=== PATIENT | male | born 1970 ===

== ENCOUNTER 2023-01-10 11:06 | Inpatient (IN) | payer OTHER ==
[~2023-01-10] VITALS: Ht 170.2 cm; Wt 70.8 kg
[2023-01-10 12:55] LABS: BASOPHILS % (AUTO) 0.5 % (0.0-2.0); EOSINOPHILS % (AUTO) 0.5 % (1.0-6.0); HEMATOCRIT 45.5 % (41-53); HEMOGLOBIN 14.8 g/dL (13.5-17.5); LYMPHOCYTES % (AUTO) 31.1 % (22.0-44.0); MEAN CORPUSCULAR HEMOGLOBIN 27.9 pg (26.0-34.0); MEAN CORPUSCULAR HGB CONC 32.6 G/dL (31.0-37.0); MEAN CORPUSCULAR VOLUME 86 fL (80-100); MONOCYTES # (AUTO) 0.4 K/uL (0.1-1.0); MONOCYTES % (AUTO) 6.2 % (2.0-9.0); NEUTROPHILS # (AUTO) 3.9 K/uL (1.8-7.7); NEUTROPHILS % (AUTO) 61.7 % (40.0-70.0); PLATELET COUNT (AUTO) 145 K/uL (150-450); RED BLOOD CELL COUNT(AUTO) 5.32 MIL/uL (4.50-5.90); RED CELL DISTRIBUTION WIDTH 13.1 % (11.5-14.5)
[2023-01-10 12:56] LABS: ANION GAP 8 mmol/L (8-16); CALCIUM, TOTAL 9.2 mg/dL (8.8-10.5); CARBON DIOXIDE 27 mmol/L (22-29); CHLORIDE 105 mmol/L (98-107); CREATININE 0.72 mg/dL (0.60-1.30); GLOMERULAR FILTR. RATE CALC > 60 mL/min (>60); GLUCOSE,RANDOM 100 mg/dL (70-110); POTASSIUM 4.3 mmol/L (3.5-5.1); SODIUM SERUM 140 mmol/L (136-145)
[2023-01-10 13:02] LABS: ALANINE AMINOTRANSFERASE 34 U/L (12-78); ALBUMIN 4.3 g/dL (3.4-5.0); ALKALINE PHOSPHATASE 86 U/L (46-116); ASPARTATE AMINOTRANSFERASE 13 U/L (15-37); BILIRUBIN,TOTAL 0.5 mg/dL (0.1-1.0); TOTAL PROTEIN, SERUM 7.9 g/dL (6.4-8.2)
[2023-01-10] MEDS ORDERED: ACETAMINOPHEN 325 MG TABLET PO PRN (13:30)
[2023-01-10] MEDS ORDERED: ONDANSETRON HCL 4 MG/2 ML VIAL IVP PRN (13:30)
[2023-01-10] MEDS ORDERED: BISACODYL 10 MG RECTAL RECTAL SUPPOSITORY PR PRN (13:30)
[2023-01-10] MEDS ORDERED: DOCUSATE SODIUM 100 MG CAPSULE PO PRN (13:30)
[2023-01-10] MEDS ORDERED: IPRATROPIUM BROMIDE 0.5 MG/2.5 ML NEB SOLUTION NEB PRN (13:30)
[2023-01-10] MEDS ORDERED: ALBUTEROL SULFATE 2.5 MG/0.5 ML NEB SOLUTION NEB PRN (13:30)
[2023-01-10] MEDS: GABAPENTIN 300 MG CAPSULE PO SCH ×2 (15:31→23:04)
[2023-01-10] MEDS ORDERED: LORazepam 2 MG/ML VIAL IVP ONE (16:45)
[2023-01-10] MEDS: FERROUS SULFATE 325 MG EC TABLET PO SCH (17:43)
[2023-01-10] MEDS: RANOLAZINE 500 MG ER TABLET PO SCH (23:03)
[2023-01-10] MEDS: DOCUSATE SODIUM 100 MG CAPSULE PO SCH (23:04)
[2023-01-10 23:17] VITALS: BP 120/70
[2023-01-11 04:33] VITALS: BP 117/78
[2023-01-11 07:25] LABS: EOSINOPHILS % (AUTO) 1.4 % (1.0-6.0); HEMATOCRIT 41.5 % (41-53); HEMOGLOBIN 13.9 g/dL (13.5-17.5); LYMPHOCYTES # (AUTO) 2.2 K/uL (1.0-4.8); LYMPHOCYTES % (AUTO) 38.9 % (22.0-44.0); MEAN CORPUSCULAR HEMOGLOBIN 28.6 pg (26.0-34.0); MEAN CORPUSCULAR HGB CONC 33.6 G/dL (31.0-37.0); MEAN CORPUSCULAR VOLUME 85 fL (80-100); MONOCYTES # (AUTO) 0.4 K/uL (0.1-1.0); MONOCYTES % (AUTO) 7.7 % (2.0-9.0); NEUTROPHILS # (AUTO) 2.9 K/uL (1.8-7.7); PLATELET COUNT (AUTO) 133 K/uL (150-450); RED BLOOD CELL COUNT(AUTO) 4.87 MIL/uL (4.50-5.90); RED CELL DISTRIBUTION WIDTH 13.5 % (11.5-14.5)
[2023-01-11 07:51] LABS: ALANINE AMINOTRANSFERASE 29 U/L (12-78); ALBUMIN 3.5 g/dL (3.4-5.0); ALKALINE PHOSPHATASE 75 U/L (46-116); ANION GAP 9 mmol/L (8-16); ASPARTATE AMINOTRANSFERASE 12 U/L (15-37); BILIRUBIN,TOTAL 0.6 mg/dL (0.1-1.0); CALCIUM, TOTAL 8.9 mg/dL (8.8-10.5); CARBON DIOXIDE 24 mmol/L (22-29); CHLORIDE 105 mmol/L (98-107); CREATININE 0.69 mg/dL (0.60-1.30); FREE T4 (FREE THYROXINE) 1.05 ng/dL (0.76-1.46); GLOMERULAR FILTR. RATE CALC > 60 mL/min (>60); GLUCOSE,RANDOM 100 mg/dL (70-110); POTASSIUM 3.7 mmol/L (3.5-5.1); SODIUM SERUM 138 mmol/L (136-145); TOTAL PROTEIN, SERUM 6.8 g/dL (6.4-8.2)
[2023-01-11] MEDS: ASPIRIN 81 MG CHEWABLE TABLET PO SCH (07:56)
[2023-01-11] MEDS: LISINOPRIL 5 MG TABLET PO SCH (07:57)
[2023-01-11] MEDS: DOCUSATE SODIUM 100 MG CAPSULE PO SCH ×2 (07:57→21:05)
[2023-01-11] MEDS: ATORVASTATIN CALCIUM 40 MG TABLET PO SCH (07:57)
[2023-01-11] MEDS: RANOLAZINE 500 MG ER TABLET PO SCH ×2 (07:57→21:05)
[2023-01-11] MEDS: GABAPENTIN 300 MG CAPSULE PO SCH ×3 (07:57→21:05)
[2023-01-11] MEDS: ISOSORBIDE MONONITRATE 30 MG ER TABLET PO SCH (07:57)
[2023-01-11] MEDS: FERROUS SULFATE 325 MG EC TABLET PO SCH ×3 (07:57→17:55)
[2023-01-11] MEDS: CLOPIDOGREL BISULFATE 75 MG TABLET PO SCH (07:57)
[2023-01-11] MEDS: METOPROLOL SUCCINATE 25 MG ER TABLET PO SCH (08:00)
[2023-01-11 08:06] VITALS: BP 122/66
[2023-01-11 08:08] LABS: APPEARANCE,URINE HAZY (CLEAR); BILIRUBIN,URINE NEGATIVE (NEGATIVE); GLUCOSE, URINE (UA) NEGATIVE (NEGATIVE); KETONES,URINE NEGATIVE (NEGATIVE); LEUKOCYTE ESTERASE ,URINE NEGATIVE (NEGATIVE); NITRATE,URINE NEGATIVE (NEGATIVE); OCCULT BLOOD,URINE NEGATIVE (NEGATIVE); PROTEIN,URINE 30-70 mg/dL (NEGATIVE); SPECIFIC GRAVITIY, URINE 1.036 (1.003-1.030); UROBILINOGEN,URINE <=1.0 mg/dL (<=1.0)
[2023-01-11 08:15] LABS: AMPHET/METH SCREEN,URINE NEGATIVE (NEGATIVE); BARBITURATE SCREEN, URINE NEGATIVE (NEGATIVE); BENZODIAZEPINES SCREEN,URINE NEGATIVE (NEGATIVE); CANNABINOID SCREEN,URINE NEGATIVE (NEGATIVE); COCAINE SCREEN,URINE NEGATIVE (NEGATIVE); METHADONE SCREEN, URINE NEGATIVE (NEGATIVE); OPIATE SCREEN,URINE NEGATIVE (NEGATIVE); PHENCYCLIDINE SCREEN,URINE NEGATIVE (NEGATIVE)
[2023-01-11 08:39] LABS: BACTERIA,URINE None Seen /HPF (None Seen); RBC,URINE 0-2 /HPF (0-2); WBC,URINE None Seen /HPF (0-5)
[2023-01-11 08:40] LABS: URIC ACID CRYSTALS,URINE Moderate /LPF (None Seen)
[2023-01-11] MEDS: NITROGLYCERIN 0.4 MG SUBLINGUAL TABLET #25 SL PRN (14:35)
[2023-01-11 16:59] VITALS: BP 126/104
[2023-01-11] MEDS ORDERED: ASPI-1450 PO (17:45)
[2023-01-11] MEDS ORDERED: CLOP75TA60 PO (17:46)
[2023-01-11] MEDS ORDERED: FERR325T27 PO (17:46)
[2023-01-11] MEDS ORDERED: DOCU-385 PO (17:46)
[2023-01-11] MEDS ORDERED: ATOR40TA28 PO (17:46)
[2023-01-11] MEDS ORDERED: GABA-1181 PO (17:47)
[2023-01-11] MEDS ORDERED: ISOS30TA92 PO (17:47)
[2023-01-11] MEDS ORDERED: LISI-892 PO (17:47)
[2023-01-11] MEDS ORDERED: RANO500T27 PO (17:48)
[2023-01-11] MEDS ORDERED: ACET-2247 PO (17:48)
[2023-01-11] MEDS ORDERED: METO25XL PO (17:48)
[2023-01-11] MEDS ORDERED: BISA10SU11 PR (17:49)
[2023-01-11] MEDS ORDERED: AUD NEB (17:49)
[2023-01-11] MEDS ORDERED: IPRNEB IH ×2 (17:50)
[2023-01-11] MEDS ORDERED: NITR0.4T52 SL (17:51)
[2023-01-11] MEDS ORDERED: ONDA-104 IVP (17:52)
[2023-01-11 19:55] VITALS: BP 102/58
[2023-01-12 04:25] VITALS: BP 90/60
[2023-01-12] MEDS: FERROUS SULFATE 325 MG EC TABLET PO SCH ×3 (08:28→16:06)
[2023-01-12] MEDS: LISINOPRIL 5 MG TABLET PO SCH (08:28)
[2023-01-12] MEDS: GABAPENTIN 300 MG CAPSULE PO SCH ×3 (08:28→20:38)
[2023-01-12] MEDS: DOCUSATE SODIUM 100 MG CAPSULE PO SCH ×2 (08:28→20:37)
[2023-01-12] MEDS: CLOPIDOGREL BISULFATE 75 MG TABLET PO SCH (08:28)
[2023-01-12] MEDS: ATORVASTATIN CALCIUM 40 MG TABLET PO SCH (08:29)
[2023-01-12] MEDS: METOPROLOL SUCCINATE 25 MG ER TABLET PO SCH (08:29)
[2023-01-12] MEDS: RANOLAZINE 500 MG ER TABLET PO SCH ×2 (08:29→20:38)
[2023-01-12] MEDS: ISOSORBIDE MONONITRATE 30 MG ER TABLET PO SCH (08:29)
[2023-01-12] MEDS: ASPIRIN 81 MG CHEWABLE TABLET PO SCH (08:29)
[2023-01-12 08:32] VITALS: BP 114/79
[2023-01-12] MEDS: NITROGLYCERIN 0.4 MG SUBLINGUAL TABLET #25 SL PRN (09:33)
[2023-01-12 16:32] VITALS: BP 115/70
[2023-01-12] MEDS ORDERED: DIAZEPAM 5 MG TABLET PO ONE (18:15)
[2023-01-12 19:43] VITALS: BP 111/75
[2023-01-12] MEDS: ClonazePAM 1 MG TABLET PO SCH (20:37)
[2023-01-13 04:40] VITALS: BP 129/89
[2023-01-13 07:45] VITALS: BP 140/67
[2023-01-13] MEDS: ISOSORBIDE MONONITRATE 30 MG ER TABLET PO SCH (08:51)
[2023-01-13] MEDS: LISINOPRIL 5 MG TABLET PO SCH (08:51)
[2023-01-13] MEDS: ASPIRIN 81 MG CHEWABLE TABLET PO SCH (08:51)
[2023-01-13] MEDS: METOPROLOL SUCCINATE 25 MG ER TABLET PO SCH (08:51)
[2023-01-13] MEDS: CLOPIDOGREL BISULFATE 75 MG TABLET PO SCH (08:51)
[2023-01-13] MEDS: RANOLAZINE 500 MG ER TABLET PO SCH ×2 (08:51→20:50)
[2023-01-13] MEDS: ClonazePAM 1 MG TABLET PO SCH ×2 (08:51→20:50)
[2023-01-13] MEDS: FERROUS SULFATE 325 MG EC TABLET PO SCH ×3 (08:51→18:27)
[2023-01-13] MEDS: DOCUSATE SODIUM 100 MG CAPSULE PO SCH ×2 (08:51→20:50)
[2023-01-13] MEDS: GABAPENTIN 300 MG CAPSULE PO SCH ×3 (08:51→20:50)
[2023-01-13] MEDS: ATORVASTATIN CALCIUM 40 MG TABLET PO SCH (08:52)
[2023-01-13 15:52] VITALS: BP 123/60
[2023-01-13 19:39] VITALS: BP 103/59
[2023-01-14 05:07] VITALS: BP 118/75
[2023-01-14 07:40] VITALS: BP 114/63
[2023-01-14] MEDS: RANOLAZINE 500 MG ER TABLET PO SCH ×2 (08:54→20:29)
[2023-01-14] MEDS: ATORVASTATIN CALCIUM 40 MG TABLET PO SCH (08:54)
[2023-01-14] MEDS: FERROUS SULFATE 325 MG EC TABLET PO SCH ×3 (08:54→18:04)
[2023-01-14] MEDS: DOCUSATE SODIUM 100 MG CAPSULE PO SCH ×2 (08:54→20:29)
[2023-01-14] MEDS: GABAPENTIN 300 MG CAPSULE PO SCH ×3 (08:54→20:29)
[2023-01-14] MEDS: LISINOPRIL 5 MG TABLET PO SCH (08:54)
[2023-01-14] MEDS: ISOSORBIDE MONONITRATE 30 MG ER TABLET PO SCH (08:55)
[2023-01-14] MEDS: CLOPIDOGREL BISULFATE 75 MG TABLET PO SCH (08:55)
[2023-01-14] MEDS: METOPROLOL SUCCINATE 25 MG ER TABLET PO SCH (08:55)
[2023-01-14] MEDS: ASPIRIN 81 MG CHEWABLE TABLET PO SCH (08:55)
[2023-01-14] MEDS: ClonazePAM 1 MG TABLET PO SCH ×2 (08:55→20:29)
[2023-01-14 20:15] VITALS: BP 118/50
[2023-01-15 04:33] VITALS: BP 102/67
[2023-01-15 07:42] VITALS: BP 106/62
[2023-01-15] MEDS: DOCUSATE SODIUM 100 MG CAPSULE PO SCH ×2 (08:46→21:00)
[2023-01-15] MEDS: GABAPENTIN 300 MG CAPSULE PO SCH ×3 (08:46→21:08)
[2023-01-15] MEDS: CLOPIDOGREL BISULFATE 75 MG TABLET PO SCH (08:46)
[2023-01-15] MEDS: ATORVASTATIN CALCIUM 40 MG TABLET PO SCH (08:47)
[2023-01-15] MEDS: RANOLAZINE 500 MG ER TABLET PO SCH ×2 (08:47→21:08)
[2023-01-15] MEDS: ISOSORBIDE MONONITRATE 30 MG ER TABLET PO SCH (08:47)
[2023-01-15] MEDS: FERROUS SULFATE 325 MG EC TABLET PO SCH ×3 (08:47→17:44)
[2023-01-15] MEDS: LISINOPRIL 5 MG TABLET PO SCH (08:47)
[2023-01-15] MEDS: METOPROLOL SUCCINATE 25 MG ER TABLET PO SCH (08:47)
[2023-01-15] MEDS: ASPIRIN 81 MG CHEWABLE TABLET PO SCH (08:47)
[2023-01-15] MEDS: ClonazePAM 1 MG TABLET PO SCH ×2 (08:47→21:09)
[2023-01-15 19:17] VITALS: BP 118/77
[2023-01-16 04:28] VITALS: BP 114/68
[2023-01-16 07:37] VITALS: BP 102/69
[2023-01-16] MEDS: ASPIRIN 81 MG CHEWABLE TABLET PO SCH (08:43)
[2023-01-16] MEDS: CLOPIDOGREL BISULFATE 75 MG TABLET PO SCH (08:43)
[2023-01-16] MEDS: ATORVASTATIN CALCIUM 40 MG TABLET PO SCH (08:43)
[2023-01-16] MEDS: RANOLAZINE 500 MG ER TABLET PO SCH ×2 (08:46→21:10)
[2023-01-16] MEDS: FERROUS SULFATE 325 MG EC TABLET PO SCH ×3 (08:46→18:11)
[2023-01-16] MEDS: ISOSORBIDE MONONITRATE 30 MG ER TABLET PO SCH (08:46)
[2023-01-16] MEDS: DOCUSATE SODIUM 100 MG CAPSULE PO SCH ×2 (08:46→21:10)
[2023-01-16] MEDS: GABAPENTIN 300 MG CAPSULE PO SCH ×3 (08:46→21:10)
[2023-01-16] MEDS: ClonazePAM 1 MG TABLET PO SCH ×2 (08:46→21:10)
[2023-01-16] MEDS: LISINOPRIL 5 MG TABLET PO SCH (08:46)
[2023-01-16] MEDS: METOPROLOL SUCCINATE 25 MG ER TABLET PO SCH (08:46)
[2023-01-16 15:31] VITALS: BP 101/72
[2023-01-16 19:37] VITALS: BP 100/70
[2023-01-17 05:07] VITALS: BP 112/86
[2023-01-17 08:03] VITALS: BP 122/56
[2023-01-17] MEDS: ClonazePAM 1 MG TABLET PO SCH ×2 (08:03→20:33)
[2023-01-17] MEDS: DOCUSATE SODIUM 100 MG CAPSULE PO SCH ×2 (08:03→20:33)
[2023-01-17] MEDS: GABAPENTIN 300 MG CAPSULE PO SCH ×3 (08:03→20:34)
[2023-01-17] MEDS: CLOPIDOGREL BISULFATE 75 MG TABLET PO SCH (08:03)
[2023-01-17] MEDS: ISOSORBIDE MONONITRATE 30 MG ER TABLET PO SCH (08:03)
[2023-01-17] MEDS: RANOLAZINE 500 MG ER TABLET PO SCH ×2 (08:03→20:33)
[2023-01-17] MEDS: FERROUS SULFATE 325 MG EC TABLET PO SCH ×3 (08:03→17:37)
[2023-01-17] MEDS: METOPROLOL SUCCINATE 25 MG ER TABLET PO SCH (08:03)
[2023-01-17] MEDS: ATORVASTATIN CALCIUM 40 MG TABLET PO SCH (08:03)
[2023-01-17] MEDS: ASPIRIN 81 MG CHEWABLE TABLET PO SCH (08:04)
[2023-01-17] MEDS: LISINOPRIL 5 MG TABLET PO SCH (08:04)
[2023-01-17 15:02] VITALS: BP 112/90
[2023-01-17 20:27] VITALS: BP 114/74
[2023-01-18 05:23] VITALS: BP 118/70
[2023-01-18 08:18] VITALS: BP 126/79
[2023-01-18] MEDS: RANOLAZINE 500 MG ER TABLET PO SCH ×2 (08:23→20:16)
[2023-01-18] MEDS: CLOPIDOGREL BISULFATE 75 MG TABLET PO SCH (08:24)
[2023-01-18] MEDS: ISOSORBIDE MONONITRATE 30 MG ER TABLET PO SCH (08:24)
[2023-01-18] MEDS: ATORVASTATIN CALCIUM 40 MG TABLET PO SCH (08:24)
[2023-01-18] MEDS: METOPROLOL SUCCINATE 25 MG ER TABLET PO SCH (08:25)
[2023-01-18] MEDS: FERROUS SULFATE 325 MG EC TABLET PO SCH ×3 (08:25→18:12)
[2023-01-18] MEDS: DOCUSATE SODIUM 100 MG CAPSULE PO SCH ×2 (08:26→20:18)
[2023-01-18] MEDS: GABAPENTIN 300 MG CAPSULE PO SCH ×3 (08:26→20:16)
[2023-01-18] MEDS: LISINOPRIL 5 MG TABLET PO SCH (08:27)
[2023-01-18] MEDS: ClonazePAM 1 MG TABLET PO SCH ×2 (08:27→20:16)
[2023-01-18] MEDS: ASPIRIN 81 MG CHEWABLE TABLET PO SCH (08:28)
[2023-01-18 15:13] VITALS: BP 126/68
[2023-01-18 19:55] VITALS: BP 123/65
[2023-01-19 04:40] VITALS: BP 105/72
[2023-01-19 08:00] VITALS: BP 127/69
[2023-01-19] MEDS: ATORVASTATIN CALCIUM 40 MG TABLET PO SCH (08:28)
[2023-01-19] MEDS: RANOLAZINE 500 MG ER TABLET PO SCH ×2 (08:29→20:31)
[2023-01-19] MEDS: ASPIRIN 81 MG CHEWABLE TABLET PO SCH (08:30)
[2023-01-19] MEDS: GABAPENTIN 300 MG CAPSULE PO SCH ×3 (08:30→20:30)
[2023-01-19] MEDS: ISOSORBIDE MONONITRATE 30 MG ER TABLET PO SCH (08:31)
[2023-01-19] MEDS: LISINOPRIL 5 MG TABLET PO SCH (08:31)
[2023-01-19] MEDS: METOPROLOL SUCCINATE 25 MG ER TABLET PO SCH (08:31)
[2023-01-19] MEDS: ClonazePAM 1 MG TABLET PO SCH ×2 (08:32→20:28)
[2023-01-19] MEDS: FERROUS SULFATE 325 MG EC TABLET PO SCH ×3 (08:33→18:13)
[2023-01-19] MEDS: CLOPIDOGREL BISULFATE 75 MG TABLET PO SCH (08:33)
[2023-01-19] MEDS: DOCUSATE SODIUM 100 MG CAPSULE PO SCH ×2 (08:34→20:34)
[2023-01-19 15:36] VITALS: BP 114/66
[2023-01-19 20:42] VITALS: BP 122/66
[2023-01-20 06:15] VITALS: BP 118/64
[2023-01-20 08:07] VITALS: BP 104/64
[2023-01-20] MEDS: METOPROLOL SUCCINATE 25 MG ER TABLET PO SCH (09:12)
[2023-01-20] MEDS: FERROUS SULFATE 325 MG EC TABLET PO SCH ×3 (09:12→17:36)
[2023-01-20] MEDS: ISOSORBIDE MONONITRATE 30 MG ER TABLET PO SCH (09:12)
[2023-01-20] MEDS: DOCUSATE SODIUM 100 MG CAPSULE PO SCH ×3 (09:12→20:06)
[2023-01-20] MEDS: ASPIRIN 81 MG CHEWABLE TABLET PO SCH (09:12)
[2023-01-20] MEDS: GABAPENTIN 300 MG CAPSULE PO SCH ×3 (09:13→20:02)
[2023-01-20] MEDS: ClonazePAM 1 MG TABLET PO SCH ×2 (09:13→20:02)
[2023-01-20] MEDS: ATORVASTATIN CALCIUM 40 MG TABLET PO SCH (09:13)
[2023-01-20] MEDS: LISINOPRIL 5 MG TABLET PO SCH (09:13)
[2023-01-20] MEDS: RANOLAZINE 500 MG ER TABLET PO SCH ×2 (09:13→20:01)
[2023-01-20] MEDS: CLOPIDOGREL BISULFATE 75 MG TABLET PO SCH (09:15)
[2023-01-20] MEDS: ESCITALOPRAM OXALATE 10 MG TABLET PO SCH (15:34)
[2023-01-20] MEDS: OLANZapine 5 MG TABLET PO SCH (20:02)
[2023-01-20 20:42] VITALS: BP 135/83
[2023-01-21 05:49] VITALS: BP 125/72
[2023-01-21 08:17] VITALS: BP 124/57
[2023-01-21] MEDS: CLOPIDOGREL BISULFATE 75 MG TABLET PO SCH (08:28)
[2023-01-21] MEDS: ATORVASTATIN CALCIUM 40 MG TABLET PO SCH (08:28)
[2023-01-21] MEDS: DOCUSATE SODIUM 100 MG CAPSULE PO SCH ×2 (08:28→20:29)
[2023-01-21] MEDS: ISOSORBIDE MONONITRATE 30 MG ER TABLET PO SCH (08:28)
[2023-01-21] MEDS: GABAPENTIN 300 MG CAPSULE PO SCH ×3 (08:28→20:30)
[2023-01-21] MEDS: FERROUS SULFATE 325 MG EC TABLET PO SCH (08:28)
[2023-01-21] MEDS: ASPIRIN 81 MG CHEWABLE TABLET PO SCH (08:29)
[2023-01-21] MEDS: METOPROLOL SUCCINATE 25 MG ER TABLET PO SCH (08:29)
[2023-01-21] MEDS: RANOLAZINE 500 MG ER TABLET PO SCH ×2 (08:29→20:43)
[2023-01-21] MEDS: LISINOPRIL 5 MG TABLET PO SCH (08:29)
[2023-01-21] MEDS: ClonazePAM 1 MG TABLET PO SCH ×2 (08:29→20:30)
[2023-01-21] MEDS: ESCITALOPRAM OXALATE 10 MG TABLET PO SCH (08:37)
[2023-01-21] MEDS: OLANZapine 5 MG TABLET PO SCH (20:30)
[2023-01-22 05:15] VITALS: BP 109/72
[2023-01-22] MEDS: ASPIRIN 81 MG CHEWABLE TABLET PO SCH (08:00)
[2023-01-22] MEDS: METOPROLOL SUCCINATE 25 MG ER TABLET PO SCH (08:00)
[2023-01-22] MEDS: ClonazePAM 1 MG TABLET PO SCH ×2 (08:00→21:10)
[2023-01-22] MEDS: RANOLAZINE 500 MG ER TABLET PO SCH ×2 (08:00→21:11)
[2023-01-22] MEDS: ISOSORBIDE MONONITRATE 30 MG ER TABLET PO SCH (08:00)
[2023-01-22] MEDS: LISINOPRIL 5 MG TABLET PO SCH (08:00)
[2023-01-22] MEDS: GABAPENTIN 300 MG CAPSULE PO SCH ×3 (08:00→21:11)
[2023-01-22] MEDS: ESCITALOPRAM OXALATE 10 MG TABLET PO SCH (08:00)
[2023-01-22] MEDS: CLOPIDOGREL BISULFATE 75 MG TABLET PO SCH (08:00)
[2023-01-22] MEDS: ATORVASTATIN CALCIUM 40 MG TABLET PO SCH (08:00)
[2023-01-22] MEDS: DOCUSATE SODIUM 100 MG CAPSULE PO SCH ×2 (08:00→21:00)
[2023-01-22] MEDS: NITROGLYCERIN 0.4 MG SUBLINGUAL TABLET #25 SL PRN (11:02)
[2023-01-22 16:07] VITALS: BP 120/71
[2023-01-22 19:49] VITALS: BP 109/73
[2023-01-22] MEDS: OLANZapine 5 MG TABLET PO SCH (21:12)
[2023-01-23 04:20] VITALS: BP 126/83
[2023-01-23] MEDS: ESCITALOPRAM OXALATE 10 MG TABLET PO SCH (07:54)
[2023-01-23] MEDS: METOPROLOL SUCCINATE 25 MG ER TABLET PO SCH (07:54)
[2023-01-23] MEDS: LISINOPRIL 5 MG TABLET PO SCH (07:55)
[2023-01-23] MEDS: CLOPIDOGREL BISULFATE 75 MG TABLET PO SCH (07:55)
[2023-01-23] MEDS: DOCUSATE SODIUM 100 MG CAPSULE PO SCH ×2 (07:55→21:00)
[2023-01-23] MEDS: ISOSORBIDE MONONITRATE 30 MG ER TABLET PO SCH (07:55)
[2023-01-23] MEDS: ClonazePAM 1 MG TABLET PO SCH ×2 (07:55→20:59)
[2023-01-23] MEDS: ASPIRIN 81 MG CHEWABLE TABLET PO SCH (07:55)
[2023-01-23] MEDS: ATORVASTATIN CALCIUM 40 MG TABLET PO SCH (07:55)
[2023-01-23] MEDS: RANOLAZINE 500 MG ER TABLET PO SCH ×2 (07:55→20:59)
[2023-01-23] MEDS: GABAPENTIN 300 MG CAPSULE PO SCH ×3 (07:55→20:59)
[2023-01-23 08:02] VITALS: BP 124/73
[2023-01-23 11:23] LABS: BASOPHILS % (AUTO) 0.7 % (0.0-2.0); EOSINOPHILS % (AUTO) 2.5 % (1.0-6.0); HEMATOCRIT 42.3 % (41-53); HEMOGLOBIN 14.3 g/dL (13.5-17.5); LYMPHOCYTES % (AUTO) 34.1 % (22.0-44.0); MEAN CORPUSCULAR HEMOGLOBIN 28.7 pg (26.0-34.0); MEAN CORPUSCULAR HGB CONC 33.8 G/dL (31.0-37.0); MEAN CORPUSCULAR VOLUME 85 fL (80-100); MONOCYTES # (AUTO) 0.5 K/uL (0.1-1.0); MONOCYTES % (AUTO) 7.7 % (2.0-9.0); NEUTROPHILS # (AUTO) 3.3 K/uL (1.8-7.7); PLATELET COUNT (AUTO) 139 K/uL (150-450); RED BLOOD CELL COUNT(AUTO) 4.97 MIL/uL (4.50-5.90)
[2023-01-23 11:50] LABS: ANION GAP 5 mmol/L (8-16); CARBON DIOXIDE 29 mmol/L (22-29); CHLORIDE 103 mmol/L (98-107); CREATININE 0.75 mg/dL (0.60-1.30); GLOMERULAR FILTR. RATE CALC > 60 mL/min (>60); GLUCOSE,RANDOM 95 mg/dL (70-110); SODIUM SERUM 137 mmol/L (136-145)
[2023-01-23 19:46] VITALS: BP 124/70
[2023-01-23] MEDS: OLANZapine 5 MG TABLET PO SCH (21:00)
[2023-01-24 04:33] VITALS: BP 131/73
[2023-01-24 07:38] VITALS: BP 129/69
[2023-01-24] MEDS: METOPROLOL SUCCINATE 25 MG ER TABLET PO SCH (08:00)
[2023-01-24] MEDS: ESCITALOPRAM OXALATE 10 MG TABLET PO SCH (08:00)
[2023-01-24] MEDS: GABAPENTIN 300 MG CAPSULE PO SCH ×3 (08:00→21:30)
[2023-01-24] MEDS: LISINOPRIL 5 MG TABLET PO SCH (08:00)
[2023-01-24] MEDS: RANOLAZINE 500 MG ER TABLET PO SCH ×2 (08:00→21:31)
[2023-01-24] MEDS: CLOPIDOGREL BISULFATE 75 MG TABLET PO SCH (08:00)
[2023-01-24] MEDS: ISOSORBIDE MONONITRATE 30 MG ER TABLET PO SCH (08:00)
[2023-01-24] MEDS: ClonazePAM 1 MG TABLET PO SCH ×2 (08:00→21:30)
[2023-01-24] MEDS: ATORVASTATIN CALCIUM 40 MG TABLET PO SCH (08:00)
[2023-01-24] MEDS: ASPIRIN 81 MG CHEWABLE TABLET PO SCH (08:01)
[2023-01-24] MEDS: DOCUSATE SODIUM 100 MG CAPSULE PO SCH ×2 (08:01→21:00)
[2023-01-24 10:20] LABS: COVID AG,FIA SOURCE NASAL SWAB
[2023-01-24 16:12] VITALS: BP 112/61
[2023-01-24 19:25] VITALS: BP 125/58
[2023-01-24] MEDS: OLANZapine 5 MG TABLET PO SCH (21:31)
[2023-01-25 07:35] VITALS: BP 108/67
[2023-01-25] MEDS: METOPROLOL SUCCINATE 25 MG ER TABLET PO SCH (08:31)
[2023-01-25] MEDS: ESCITALOPRAM OXALATE 10 MG TABLET PO SCH (08:31)
[2023-01-25] MEDS: ISOSORBIDE MONONITRATE 30 MG ER TABLET PO SCH (08:31)
[2023-01-25] MEDS: ClonazePAM 1 MG TABLET PO SCH ×2 (08:31→21:17)
[2023-01-25] MEDS: CLOPIDOGREL BISULFATE 75 MG TABLET PO SCH (08:31)
[2023-01-25] MEDS: ATORVASTATIN CALCIUM 40 MG TABLET PO SCH (08:31)
[2023-01-25] MEDS: RANOLAZINE 500 MG ER TABLET PO SCH ×2 (08:31→21:17)
[2023-01-25] MEDS: LISINOPRIL 5 MG TABLET PO SCH (08:31)
[2023-01-25] MEDS: ASPIRIN 81 MG CHEWABLE TABLET PO SCH (08:31)
[2023-01-25] MEDS: GABAPENTIN 300 MG CAPSULE PO SCH ×3 (08:31→21:17)
[2023-01-25] MEDS: DOCUSATE SODIUM 100 MG CAPSULE PO SCH ×2 (08:32→21:00)
[2023-01-25 15:19] VITALS: BP 96/63
[2023-01-25 20:12] VITALS: BP 112/65
[2023-01-25] MEDS: OLANZapine 5 MG TABLET PO SCH (21:18)
[2023-01-26] MEDS: METOPROLOL SUCCINATE 25 MG ER TABLET PO SCH (08:05)
[2023-01-26] MEDS: RANOLAZINE 500 MG ER TABLET PO SCH ×2 (08:05→21:18)
[2023-01-26] MEDS: ISOSORBIDE MONONITRATE 30 MG ER TABLET PO SCH (08:05)
[2023-01-26] MEDS: ATORVASTATIN CALCIUM 40 MG TABLET PO SCH (08:06)
[2023-01-26] MEDS: ESCITALOPRAM OXALATE 10 MG TABLET PO SCH (08:06)
[2023-01-26] MEDS: ASPIRIN 81 MG CHEWABLE TABLET PO SCH (08:06)
[2023-01-26] MEDS: CLOPIDOGREL BISULFATE 75 MG TABLET PO SCH (08:06)
[2023-01-26] MEDS: ClonazePAM 1 MG TABLET PO SCH ×2 (08:06→21:18)
[2023-01-26] MEDS: GABAPENTIN 300 MG CAPSULE PO SCH ×3 (08:07→21:18)
[2023-01-26] MEDS: LISINOPRIL 5 MG TABLET PO SCH (08:07)
[2023-01-26] MEDS: DOCUSATE SODIUM 100 MG CAPSULE PO SCH ×2 (08:07→21:00)
[2023-01-26 20:23] VITALS: BP 110/72
[2023-01-26] MEDS: OLANZapine 5 MG TABLET PO SCH (21:19)
[2023-01-27 05:11] VITALS: BP 112/61
[2023-01-27 08:17] VITALS: BP_SYST 107; BP_SYST 117; BP_DIAS 64; BP_DIAS 70
[2023-01-27] MEDS: METOPROLOL SUCCINATE 25 MG ER TABLET PO SCH (10:04)
[2023-01-27] MEDS: DOCUSATE SODIUM 100 MG CAPSULE PO SCH ×2 (10:04→21:00)
[2023-01-27] MEDS: ATORVASTATIN CALCIUM 40 MG TABLET PO SCH (10:04)
[2023-01-27] MEDS: ClonazePAM 1 MG TABLET PO SCH ×2 (10:04→21:49)
[2023-01-27] MEDS: CLOPIDOGREL BISULFATE 75 MG TABLET PO SCH (10:05)
[2023-01-27] MEDS: ASPIRIN 81 MG CHEWABLE TABLET PO SCH (10:05)
[2023-01-27] MEDS: ESCITALOPRAM OXALATE 10 MG TABLET PO SCH (10:05)
[2023-01-27] MEDS: GABAPENTIN 300 MG CAPSULE PO SCH ×3 (10:05→21:50)
[2023-01-27] MEDS: ISOSORBIDE MONONITRATE 30 MG ER TABLET PO SCH (10:06)
[2023-01-27] MEDS: LISINOPRIL 5 MG TABLET PO SCH (10:06)
[2023-01-27] MEDS: RANOLAZINE 500 MG ER TABLET PO SCH ×2 (10:13→21:50)
[2023-01-27 11:29] VITALS: BP 118/72
[2023-01-27 16:36] VITALS: BP 139/79
[2023-01-27 21:03] VITALS: BP 107/87
[2023-01-27] MEDS: OLANZapine 5 MG TABLET PO SCH (21:50)
[2023-01-28 04:36] VITALS: BP 134/80
[2023-01-28 08:14] VITALS: BP 134/53
[2023-01-28] MEDS: ISOSORBIDE MONONITRATE 30 MG ER TABLET PO SCH (08:45)
[2023-01-28] MEDS: RANOLAZINE 500 MG ER TABLET PO SCH ×2 (08:45→20:24)
[2023-01-28] MEDS: METOPROLOL SUCCINATE 25 MG ER TABLET PO SCH ×2 (08:46→08:54)
[2023-01-28] MEDS: GABAPENTIN 300 MG CAPSULE PO SCH ×3 (08:46→20:23)
[2023-01-28] MEDS: ESCITALOPRAM OXALATE 10 MG TABLET PO SCH (08:46)
[2023-01-28] MEDS: ClonazePAM 1 MG TABLET PO SCH ×2 (08:46→20:39)
[2023-01-28] MEDS: ASPIRIN 81 MG CHEWABLE TABLET PO SCH (08:46)
[2023-01-28] MEDS: DOCUSATE SODIUM 100 MG CAPSULE PO SCH ×2 (08:46→20:23)
[2023-01-28] MEDS: CLOPIDOGREL BISULFATE 75 MG TABLET PO SCH (08:46)
[2023-01-28] MEDS: LISINOPRIL 5 MG TABLET PO SCH ×2 (08:46→08:54)
[2023-01-28 08:54] VITALS: BP 134/85
[2023-01-28] MEDS: ATORVASTATIN CALCIUM 40 MG TABLET PO SCH (08:57)
[2023-01-28 15:31] VITALS: BP 113/72
[2023-01-28] MEDS: OLANZapine 5 MG TABLET PO SCH (20:23)
[2023-01-28 20:57] VITALS: BP 113/74
[2023-01-29 05:25] VITALS: BP 110/62
[2023-01-29 08:05] VITALS: BP 137/67
[2023-01-29] MEDS: ASPIRIN 81 MG CHEWABLE TABLET PO SCH (08:24)
[2023-01-29] MEDS: GABAPENTIN 300 MG CAPSULE PO SCH ×3 (08:24→20:18)
[2023-01-29] MEDS: RANOLAZINE 500 MG ER TABLET PO SCH ×2 (08:25→20:18)
[2023-01-29] MEDS: ATORVASTATIN CALCIUM 40 MG TABLET PO SCH (08:25)
[2023-01-29] MEDS: DOCUSATE SODIUM 100 MG CAPSULE PO SCH ×2 (08:25→20:18)
[2023-01-29] MEDS: ESCITALOPRAM OXALATE 10 MG TABLET PO SCH (08:25)
[2023-01-29] MEDS: ClonazePAM 1 MG TABLET PO SCH ×2 (08:25→20:18)
[2023-01-29] MEDS: LISINOPRIL 5 MG TABLET PO SCH (08:25)
[2023-01-29] MEDS: METOPROLOL SUCCINATE 25 MG ER TABLET PO SCH (08:25)
[2023-01-29] MEDS: CLOPIDOGREL BISULFATE 75 MG TABLET PO SCH (08:25)
[2023-01-29] MEDS: ISOSORBIDE MONONITRATE 30 MG ER TABLET PO SCH (08:25)
[2023-01-29 19:46] VITALS: BP 122/70
[2023-01-29] MEDS: OLANZapine 5 MG TABLET PO SCH (20:18)
[2023-01-30 07:24] VITALS: BP 117/72
[2023-01-30] MEDS: CLOPIDOGREL BISULFATE 75 MG TABLET PO SCH (08:39)
[2023-01-30] MEDS: ClonazePAM 1 MG TABLET PO SCH ×2 (08:39→20:12)
[2023-01-30] MEDS: ASPIRIN 81 MG CHEWABLE TABLET PO SCH (08:39)
[2023-01-30] MEDS: ISOSORBIDE MONONITRATE 30 MG ER TABLET PO SCH (08:39)
[2023-01-30] MEDS: RANOLAZINE 500 MG ER TABLET PO SCH ×2 (08:39→20:12)
[2023-01-30] MEDS: ATORVASTATIN CALCIUM 40 MG TABLET PO SCH (08:39)
[2023-01-30] MEDS: DOCUSATE SODIUM 100 MG CAPSULE PO SCH ×2 (08:39→20:13)
[2023-01-30] MEDS: GABAPENTIN 300 MG CAPSULE PO SCH ×3 (08:39→20:12)
[2023-01-30] MEDS: METOPROLOL SUCCINATE 25 MG ER TABLET PO SCH (08:40)
[2023-01-30] MEDS: LISINOPRIL 5 MG TABLET PO SCH (08:40)
[2023-01-30] MEDS: ESCITALOPRAM OXALATE 10 MG TABLET PO SCH (08:40)
[2023-01-30 20:11] VITALS: BP 148/100
[2023-01-30] MEDS: OLANZapine 5 MG TABLET PO SCH (20:12)
[2023-01-31 04:36] VITALS: BP 144/98
[2023-01-31 07:37] VITALS: BP 123/84
[2023-01-31] MEDS: GABAPENTIN 300 MG CAPSULE PO SCH ×3 (08:12→21:02)
[2023-01-31] MEDS: RANOLAZINE 500 MG ER TABLET PO SCH ×2 (08:12→21:03)
[2023-01-31] MEDS: METOPROLOL SUCCINATE 25 MG ER TABLET PO SCH (08:12)
[2023-01-31] MEDS: LISINOPRIL 5 MG TABLET PO SCH (08:12)
[2023-01-31] MEDS: ClonazePAM 1 MG TABLET PO SCH ×2 (08:12→21:50)
[2023-01-31] MEDS: ESCITALOPRAM OXALATE 10 MG TABLET PO SCH (08:12)
[2023-01-31] MEDS: ASPIRIN 81 MG CHEWABLE TABLET PO SCH (08:12)
[2023-01-31] MEDS: DOCUSATE SODIUM 100 MG CAPSULE PO SCH ×2 (08:12→21:02)
[2023-01-31] MEDS: ATORVASTATIN CALCIUM 40 MG TABLET PO SCH (08:12)
[2023-01-31] MEDS: ISOSORBIDE MONONITRATE 30 MG ER TABLET PO SCH (08:12)
[2023-01-31] MEDS: CLOPIDOGREL BISULFATE 75 MG TABLET PO SCH (08:12)
[2023-01-31 11:14] LABS: BASOPHILS % (AUTO) 0.4 % (0.0-2.0); EOSINOPHILS % (AUTO) 1.2 % (1.0-6.0); HEMATOCRIT 44.3 % (41-53); HEMOGLOBIN 14.9 g/dL (13.5-17.5); LYMPHOCYTES # (AUTO) 2.7 K/uL (1.0-4.8); LYMPHOCYTES % (AUTO) 36.9 % (22.0-44.0); MEAN CORPUSCULAR HEMOGLOBIN 28.7 pg (26.0-34.0); MEAN CORPUSCULAR HGB CONC 33.6 G/dL (31.0-37.0); MEAN CORPUSCULAR VOLUME 86 fL (80-100); MONOCYTES # (AUTO) 0.4 K/uL (0.1-1.0); MONOCYTES % (AUTO) 5.8 % (2.0-9.0); NEUTROPHILS # (AUTO) 4.1 K/uL (1.8-7.7); NEUTROPHILS % (AUTO) 55.7 % (40.0-70.0); RED BLOOD CELL COUNT(AUTO) 5.18 MIL/uL (4.50-5.90); RED CELL DISTRIBUTION WIDTH 13.3 % (11.5-14.5)
[2023-01-31 11:22] LABS: ANION GAP 4 mmol/L (8-16); CALCIUM, TOTAL 9.1 mg/dL (8.8-10.5); CARBON DIOXIDE 30 mmol/L (22-29); CHLORIDE 102 mmol/L (98-107); GLOMERULAR FILTR. RATE CALC > 60 mL/min (>60); GLUCOSE,RANDOM 99 mg/dL (70-110); POTASSIUM 4.1 mmol/L (3.5-5.1); SODIUM SERUM 136 mmol/L (136-145)
[2023-01-31 11:56] LABS: PLATELET COUNT (AUTO) 140 K/uL (150-450)
[2023-01-31 15:52] VITALS: BP 135/83
[2023-01-31 19:32] VITALS: BP 125/99
[2023-01-31] MEDS: OLANZapine 5 MG TABLET PO SCH (21:03)
[2023-02-01 05:22] VITALS: BP 131/93
[2023-02-01 07:55] VITALS: BP 125/84
[2023-02-01] MEDS: ClonazePAM 1 MG TABLET PO SCH ×2 (08:11→20:39)
[2023-02-01] MEDS: DOCUSATE SODIUM 100 MG CAPSULE PO SCH ×2 (08:11→20:39)
[2023-02-01] MEDS: ASPIRIN 81 MG CHEWABLE TABLET PO SCH (08:12)
[2023-02-01] MEDS: ESCITALOPRAM OXALATE 10 MG TABLET PO SCH (08:12)
[2023-02-01] MEDS: RANOLAZINE 500 MG ER TABLET PO SCH ×2 (08:12→20:40)
[2023-02-01] MEDS: LISINOPRIL 5 MG TABLET PO SCH (08:12)
[2023-02-01] MEDS: GABAPENTIN 300 MG CAPSULE PO SCH ×3 (08:12→20:39)
[2023-02-01] MEDS: ISOSORBIDE MONONITRATE 30 MG ER TABLET PO SCH (08:12)
[2023-02-01] MEDS: METOPROLOL SUCCINATE 25 MG ER TABLET PO SCH (08:12)
[2023-02-01] MEDS: CLOPIDOGREL BISULFATE 75 MG TABLET PO SCH (08:12)
[2023-02-01] MEDS: ATORVASTATIN CALCIUM 40 MG TABLET PO SCH (08:12)
[2023-02-01 15:38] VITALS: BP_SYST 113; BP_SYST 118; BP_DIAS 59; BP_DIAS 70
[2023-02-01] MEDS ORDERED: OLAN5TAB52 PO (15:43)
[2023-02-01] MEDS ORDERED: CLON-592 PO (15:44)
[2023-02-01] MEDS ORDERED: CLON-595 PO ×2 (15:44→15:46)
[2023-02-01] MEDS ORDERED: ESCI-8 PO (15:46)
[2023-02-01 16:44] LABS: BASOPHILS % (AUTO) 0.3 % (0.0-2.0); EOSINOPHILS % (AUTO) 1.1 % (1.0-6.0); HEMATOCRIT 43.2 % (41-53); LYMPHOCYTES # (AUTO) 2.8 K/uL (1.0-4.8); LYMPHOCYTES % (AUTO) 25.9 % (22.0-44.0); MEAN CORPUSCULAR HEMOGLOBIN 27.5 pg (26.0-34.0); MEAN CORPUSCULAR HGB CONC 32.5 G/dL (31.0-37.0); MEAN CORPUSCULAR VOLUME 85 fL (80-100); MONOCYTES # (AUTO) 0.7 K/uL (0.1-1.0); MONOCYTES % (AUTO) 6.5 % (2.0-9.0); NEUTROPHILS # (AUTO) 7.1 K/uL (1.8-7.7); NEUTROPHILS % (AUTO) 66.2 % (40.0-70.0); PLATELET COUNT (AUTO) 154 K/uL (150-450); RED BLOOD CELL COUNT(AUTO) 5.09 MIL/uL (4.50-5.90); RED CELL DISTRIBUTION WIDTH 12.9 % (11.5-14.5)
[2023-02-01 16:51] LABS: ANION GAP 9 mmol/L (8-16); CALCIUM, TOTAL 8.9 mg/dL (8.8-10.5); CARBON DIOXIDE 29 mmol/L (22-29); CHLORIDE 102 mmol/L (98-107); GLOMERULAR FILTR. RATE CALC > 60 mL/min (>60); GLUCOSE,RANDOM 105 mg/dL (70-110); POTASSIUM 4.3 mmol/L (3.5-5.1); SODIUM SERUM 140 mmol/L (136-145)
[2023-02-01 20:00] VITALS: BP 146/59
[2023-02-01] MEDS: OLANZapine 5 MG TABLET PO SCH (20:39)
[2023-02-02 04:10] VITALS: BP 101/61
== END 2023-02-02 09:11 | DRG 92 ==
LOC: EMS 11:06 → AHU 14:51 → 6S 20:01
PROVIDERS: ADMIT Internal Medicine; ATTEND Internal Medicine
DX: G25.2 Other specified forms of tremor (principal); R47.01 Aphasia; R27.0 Ataxia, unspecified; I11.9 Hypertensive heart disease without heart failure; I25.10 Atherosclerotic heart disease of native coronary artery without angina pectoris; G89.29 Other chronic pain; F25.1 Schizoaffective disorder, depressive type; Z20.822 Contact with and (suspected) exposure to COVID-19; E78.00 Pure hypercholesterolemia, unspecified; Z95.5 Presence of coronary angioplasty implant and graft; Z95.1 Presence of aortocoronary bypass graft; Z79.899 Other long term (current) drug therapy; Z79.82 Long term (current) use of aspirin; Z86.73 Personal history of transient ischemic attack (TIA), and cerebral infarction without residual deficits
CPT/HCPCS: 71045; 74230; 80048; 80053; 80307; 81001; 82140; 84439; 84443; 84484; 85025; 92507; 92523; 92526; 92610; 92611; 93005; 97116; 97162; 97167; 97530; 97535; 99285; J2060; 36415-L1; 36415-TC